=== PATIENT | male | born 1965 | race African-American/Black ===

== ENCOUNTER → 2016-09-27 | Outpatient (CLI) | payer BC ==
[2015-10-18 12:58] VITALS: BP 128/78
[~2016-09-27] MED LIST: PRED20TA PO
--- NOTE | 2016-09-28 09:23 | RAD ---
Abdomen radiograph History: Left lower quadrant pain. Comparison: None. Findings: AP supine abdomen radiograph. Bowel gas pattern is nonspecific, without evidence of obstruction. A mild amount of stool seen within the colon. Calcifications in the pelvis are seen, may be phleboliths, but cannot exclude a distal left ureteral stone. Impression: Nonspecific bowel gas pattern.
== END | disposition home or self-care (01) ==
LOC: RAD 17:31
PROVIDERS: ATTEND General Practice
DX: R10.32 Left lower quadrant pain (principal)
CPT/HCPCS: 74000

== ENCOUNTER 2017-07-13 03:16 | Observation (INO) | payer BC, OTHER ==
[~2017-07-13] VITALS: Ht 182.9 cm; Wt 105.9 kg
[2017-07-13] MEDS ORDERED: ASPIRIN 81 MG TAB.CHEW ONE (03:37)
[2017-07-13] MEDS ORDERED: CONTRAST GIVEN MC PRN (03:45)
[2017-07-13 03:50] LABS: BASO % 1 % (0-3); EOS # 0.4 x10^3/uL (0.0-0.7); EOS % 6 % (0-3); HEMATOCRIT 41.9 % (39.0-53.0); HEMOGLOBIN 14.2 g/dL (13.0-17.5); LYMPH # 1.4 x10^3/uL (1.0-4.8); LYMPH % 20 % (24-48); MEAN CORPUSCULAR HEMOGLOBIN 29 pg (25-35); MEAN CORPUSCULAR HGB CONC 34 g/dL (31-37); MEAN CORPUSCULAR VOLUME 85 fL (79-100); MONO # 0.6 x10^3/uL (0.0-1.1); MONO % 9 % (0-9); NEUT # 4.5 x10^3uL (1.8-7.7); NEUT % 64 % (31-73); PLATELET COUNT 256 x10^3/uL (140-400); RED BLOOD COUNT 4.94 x10^6/uL (4.30-5.70); RED CELL DISTRIBUTION WIDTH 13.8 % (11.5-14.5)
--- NOTE | 2017-07-13 03:53 | EKG ---
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
[2017-07-13] MEDS ORDERED: MORPHINE SULFATE 4 MG/ML DISP.SYRIN. IV ONE (04:00)
[2017-07-13] MEDS ORDERED: ASPIRIN ENTERIC COATED 325 MG TABLET.DR. PO ONE (04:00)
[2017-07-13] MEDS ORDERED: IOHEXOL 300 MG/ML 75 ML VIAL. IV ONE (04:00)
[2017-07-13 04:03] LABS: ALBUMIN 3.8 g/dL (3.4-5.0); ALBUMIN/GLOBULIN RATIO 1.1 (1.0-1.7); CALCIUM 8.6 mg/dL (8.5-10.1); CREATININE 1.2 mg/dL (0.7-1.3); GFR 76.9; POTASSIUM 3.4 mmol/L (3.5-5.1); TOTAL BILIRUBIN 0.6 mg/dL (0.2-1.0); TOTAL PROTEIN 7.3 g/dL (6.4-8.2)
--- NOTE | 2017-07-13 05:11 | RAD ---
INDICATION: chest pain COMPARISON: May 2012 TECHNIQUE: Axial CT images obtained through the chest. Intravenous contrast utilized. Angiogram 3D images processed per protocol. One or more of the following individualized dose reduction techniques were utilized for this examination: 1. Automated exposure control; 2. Adjustment of the mA and/or kV according to patient size; 3. Use of iterative reconstruction technique. FINDINGS: There is some dependent groundglass opacities bilaterally. No evidence of pneumothorax. Partially visualized liver appears low attenuation. Nonspecific but can be seen with fatty infiltration. Some motion obscures proximal ascending thoracic aorta but no definite aneurysm or dissection flap is seen in visualized portions. There are some mildly prominent lymph nodes in the axilla. No embolus in the main pulmonary arteries. Somewhat limited peripherally secondary to motion and contrast bolus timing. IMPRESSION: 1. No central pulmonary embolus. 2. There are some dependent groundglass opacities bilaterally. Could be secondary to atelectasis but mild edema or pneumonitis can also have this appearance. 3. Low attenuation of the liver. Nonspecific but frequently secondary to fatty infiltration. Electronically signed by: Mason Cherry MD (07/13/2017 5:08 AM) [id number]
--- NOTE | 2017-07-13 05:39 | PHYS DOC ---
Past History Past Medical History: No Pertinent History Past Surgical History: No Surgical History Alcohol Use: None Drug Use: None Adult General Chief Complaint Chief Complaint: CHEST PAIN HPI HPI Patient is a 52-year-old gentleman who presents here today complaining of left shoulder and chest discomfort that started approximately 2 hours prior to arrival he is resting. Patient has no history of hypertension, diabetes, CAD, cholesterol, family history, tobacco, drug history. Patient has a liver longer kidney problems. Patient reports that the pain started while he was sleeping arrest started developing left shoulder and chest discomfort that he describes as a gas bubble in his chest. Patient denies any exacerbating or relieving factors. Patient reports no change with exertion, rest, position, burping. Patient denies any fevers shakes chills cough cold rhinorrhea. Patient denies any diaphoresis or shortness of breath. Patient has any abdominal pain dysuria frequency urgency. Patient reports no prior heart disease or prior workup for heart disease. Review of systems: Constitutional: Denies fever or chills Eyes: Denies change in visual acuity, redness, or eye pain HENT: Denies nasal congestion or sore throat Respiratory: Denies cough or shortness of breath All other systems were reviewed and found to be within normal limits, except as documented in this note. Physical exam: Constitutional: Well developed, well nourished, no acute distress, non-toxic appearance. HENT: Normocephalic, atraumatic, bilateral external ears normal, nose normal. Eyes: PERRLA, EOMI, conjunctiva normal, no discharge. Neck: Normal range of motion, no tenderness, supple, no stridor. Cardiovascular: Heart rate regular rhythm, Lungs & Thorax: Bilateral breath sounds clear to auscultation Abdomen: No abdominal distention. Skin: Warm, dry, no erythema, no rash. Back: Normal spinal curvature Extremities: No tenderness, no cyanosis, no clubbing, ROM intact, no edema. Neurologic: Alert and oriented X 3, normal motor function, normal sensory function, no focal deficits noted. Psychologic: Affect normal, judgement normal, mood normal. Patient's ER physical exam was most remarkable: Nonreproducible chest discomfort EKG as interpreted by ER physician reveals: Normal sinus rhythm with nonspecific ST-T wave abnormalities. No evidence of ST elevation MD. CTA of thorax: No acute PE or dissection. Chest x-ray as interpreted by ER physician reveals: Normal heart no infiltrates or effusions. Labs reviewed: Assessment and plan: 1. 52-year-old gentleman with no significant past medical history presents to the ER today complaining of left shoulder discomfort that's nonreproducible as well as a "bubble sensation in his chest ". Although patient has no significant cardiac risk factors, the patient's description of the discomfort is extremely atypical and could be consistent with unstable angina. I have discussed with the patient his normal lab results as well as normal CTA which was negative for dissection. I have recommended admission for further evaluation of his discomfort and he and his are both in agreement with the current plan. The patient reports the pain is significantly improved after the morphine and aspirin. Patient reports he does have a history significant for back discomfort in the past however he reports that this discomfort is completely atypical to his usual back pain. Current Medications Current Medications Current Medications Medications (Trade) Dose Ordered Sig/Alejandro Start Time Stop Time Status Last Admin Dose Admin Aspirin (Aspirin Enteric Coated) 325 mg 1X ONCE 07/13/17 04:00 07/13/17 04:01 DC Info (Do NOT chart on this entry -- for MONITORING) 1 each PRN DAILY PRN 07/13/17 03:45 07/15/17 03:44 Iohexol (Omnipaque 300 Mg/ml) 75 ml 1X ONCE 07/13/17 04:00 07/13/17 04:01 DC 07/13/17 04:00 75 ML Morphine Sulfate (Morphine 4mg Syringe) 4 mg 1X ONCE 07/13/17 04:00 07/13/17 04:01 DC 07/13/17 03:40 4 MG Allergies Allergies Allergies Coded Allergies Type Severity Reaction Last Updated Verified latex Allergy Intermediate 07/13/17 Yes Current Patient Data Vital Signs Vital Signs Date Time Temp Pulse Resp B/P (MAP) Pulse Ox O2 Delivery O2 Flow Rate FiO2 07/13/17 03:40 20 99 Room Air 07/13/17 03:16 97.9 84 Lab Results Laboratory Tests Test 07/13/17 03:30 White Blood Count 7.0 x10^3/uL (4.0-11.0) Red Blood Count 4.94 x10^6/uL (4.30-5.70) Hemoglobin 14.2 g/dL (13.0-17.5) Hematocrit 41.9 % (39.0-53.0) Mean Corpuscular Volume 85 fL (79-100) Mean Corpuscular Hemoglobin 29 pg (25-35) Mean Corpuscular Hemoglobin Concent 34 g/dL (31-37) Red Cell Distribution Width 13.8 % (11.5-14.5) Platelet Count 256 x10^3/uL (140-400) Neutrophils (%) (Auto) 64 % (31-73) Lymphocytes (%) (Auto) 20 % (24-48) L Monocytes (%) (Auto) 9 % (0-9) Eosinophils (%) (Auto) 6 % (0-3) H Basophils (%) (Auto) 1 % (0-3) Neutrophils # (Auto) 4.5 x10^3uL (1.8-7.7) Lymphocytes # (Auto) 1.4 x10^3/uL (1.0-4.8) Monocytes # (Auto) 0.6 x10^3/uL (0.0-1.1) Eosinophils # (Auto) 0.4 x10^3/uL (0.0-0.7) Basophils # (Auto) 0.0 x10^3/uL (0.0-0.2) Sodium Level 139 mmol/L (136-145) Potassium Level 3.4 mmol/L (3.5-5.1) L Chloride Level 103 mmol/L (98-107) Carbon Dioxide Level 29 mmol/L (21-32) Anion Gap 7 (6-14) Blood Urea Nitrogen 14 mg/dL (8-26) Creatinine 1.2 mg/dL (0.7-1.3) Estimated GFR (Cockcroft-Gault) 76.9 BUN/Creatinine Ratio 12 (6-20) Glucose Level 120 mg/dL (70-99) H Calcium Level 8.6 mg/dL (8.5-10.1) Total Bilirubin 0.6 mg/dL (0.2-1.0) Aspartate Amino Transferase (AST) 18 U/L (15-37) Alanine Aminotransferase (ALT) 32 U/L (16-63) Alkaline Phosphatase 46 U/L (46-116) Troponin I Quantitative < 0.017 ng/mL (0-0.055) Total Protein 7.3 g/dL (6.4-8.2) Albumin 3.8 g/dL (3.4-5.0) Albumin/Globulin Ratio 1.1 (1.0-1.7) EKG EKG [] Radiology/Procedures Radiology/Procedures [] Course & Med Decision Making Course & Med Decision Making Pertinent Labs and Imaging studies reviewed. (See chart for details) [] Dragon Disclaimer Dragon Disclaimer This electronic medical record was generated, in whole or in part, using a voice recognition dictation system. Departure Departure: Impression: Primary Impression: Chest pain Additional Impression: Unstable angina Disposition: ADMITTED INPATIENT Admitting Physician: Peter Mcdowell Condition: STABLE Referrals: KHUSHI MAYNARD DO (PCP) Problem Qualifiers NISREEN SMALL MD Jul 13, 2017 05:39
[2017-07-13] MEDS ORDERED: ACETAMINOPHEN 325 MG TABLET PO PRN (05:45)
[2017-07-13] MEDS ORDERED: NITROGLYCERIN SUBLINGUAL 0.4 MG BOTTLE OF 25. SL PRN (05:45)
[2017-07-13] MEDS ORDERED: MORPHINE SULFATE 4 MG/ML DISP.SYRIN. IV PRN (05:45)
[2017-07-13 06:19] VITALS: BP 136/60
[2017-07-13 06:32] VITALS: BP 140/81
--- NOTE | 2017-07-13 07:07 | RAD ---
Portable chest, 07/13/2017: History: Chest pain Comparison is made to a study from 02/08/2016. The heart size and pulmonary vascularity are normal. No pulmonary infiltrate is seen. There is no evidence of pleural fluid. IMPRESSION: No acute cardiopulmonary abnormality is detected.
--- NOTE | 2017-07-13 09:40 | PDOC2 ---
CONSULT Date of Admission DATE: 07/13/17 TIME: 09:38 Reason for Consult: cp Problem List Problems Medical Problems: (1) Chest pain Status: Acute (2) Unstable angina Status: Acute History of Present Illness Mr Salcido is a 52 year old male with no significant medical history that presented to the ED with complaints of back, arm and chest pain. He reports that he woke from sleep with pain between his shoulder blades which radiated to his left arm and a mild pressure in his mid sternal area. He denies any exacerbating or relieving factors. He reports that his pain improved while in the ED and now has only some discomfort in his right shoulder blade area. He denies any prior chest discomfort, dyspnea, congestive symptoms, palpitations or syncope. He reports some mild lightheadedness that occurs when he first gets up in the mornings and resolves quickly with standing still. He denies any limitations in his functional status. Past Medical History low back surgery and herniated disc in his upper back Past Surgical History as above Family History hypertension, diabetes mellitus, no premature coronary disease or SCD Social History non smoker, no ETOH or illicit drugs Current Medications Current Medications Aspirin (Aspirin Enteric Coated) 325 mg 1X ONCE PO ; Start 07/13/17 at 04:00; Stop 07/13/17 at 04:01; Status DC Morphine Sulfate (Morphine 4mg Syringe) 4 mg 1X ONCE IV Last administered on at 03:40; Start 07/13/17 at 04:00; Stop 07/13/17 at 04:01; Status DC Iohexol (Omnipaque 300 Mg/ml) 75 ml 1X ONCE IV Last administered on 07/13/17at 04:00; Start 07/13/17 at 04:00; Stop 07/13/17 at 04:01; Status DC Info (Do NOT chart on this entry -- for MONITORING) 1 each PRN DAILY PRN MC SEE COMMENTS; Start 07/13/17 at 03:45; Stop 07/15/17 at 03:44 Morphine Sulfate (Morphine 4mg Syringe) 4 mg PRN Q2HR PRN IV PAIN; Start at 05:45; Stop 07/14/17 at 05:44 Acetaminophen (Tylenol) 650 mg PRN Q4HRS PRN PO FEVER; Start 07/13/17 at 05:45 ; Stop 07/14/17 at 05:44 Nitroglycerin (Nitrostat) 0.4 mg PRN Q5MIN PRN SL CHEST PAIN; Start 07/13/17 at 05:45; Stop 07/14/17 at 05:44 Active Scripts Active Reported No Known Medications Prior To Admisstion (Info) Each 1 Each Allergies: Coded Allergies: latex (Verified Allergy, Intermediate, 07/13/17) Review of System as per HPI or negative General: Alert, Oriented X3, Cooperative, No acute distress HEENT: Atraumatic, EOMI, Mucous membr. moist/pink Lungs: Clear to auscultation, Normal air movement Heart: Regular rate, Normal S1, Normal S2, No murmurs, Other (no clicks or rubs ) Abdomen: Normal bowel sounds, Soft, No tenderness Extremities: No clubbing, No cyanosis, No edema, Normal pulses Neuro: Normal speech, Strength at 5/5 X4 ext Psych/Mental Status: Mental status NL, Mood NL VITALS Vital Signs Date Time Temp Pulse Resp B/P (MAP) Pulse Ox O2 Delivery O2 Flow Rate FiO2 07/13/17 07:55 Room Air 07/13/17 06:32 98.4 71 19 140/81 (100) 98 Labs Laboratory Tests Test 07/13/17 03:30 07/13/17 08:37 White Blood Count 7.0 x10^3/uL (4.0-11.0) Red Blood Count 4.94 x10^6/uL (4.30-5.70) Hemoglobin 14.2 g/dL (13.0-17.5) Hematocrit 41.9 % (39.0-53.0) Mean Corpuscular Volume 85 fL (79-100) Mean Corpuscular Hemoglobin 29 pg (25-35) Mean Corpuscular Hemoglobin Concent 34 g/dL (31-37) Red Cell Distribution Width 13.8 % (11.5-14.5) Platelet Count 256 x10^3/uL (140-400) Neutrophils (%) (Auto) 64 % (31-73) Lymphocytes (%) (Auto) 20 % (24-48) Monocytes (%) (Auto) 9 % (0-9) Eosinophils (%) (Auto) 6 % (0-3) Basophils (%) (Auto) 1 % (0-3) Neutrophils # (Auto) 4.5 x10^3uL (1.8-7.7) Lymphocytes # (Auto) 1.4 x10^3/uL (1.0-4.8) Monocytes # (Auto) 0.6 x10^3/uL (0.0-1.1) Eosinophils # (Auto) 0.4 x10^3/uL (0.0-0.7) Basophils # (Auto) 0.0 x10^3/uL (0.0-0.2) Sodium Level 139 mmol/L (136-145) Potassium Level 3.4 mmol/L (3.5-5.1) Chloride Level 103 mmol/L (98-107) Carbon Dioxide Level 29 mmol/L (21-32) Anion Gap 7 (6-14) Blood Urea Nitrogen 14 mg/dL (8-26) Creatinine 1.2 mg/dL (0.7-1.3) Estimated GFR (Cockcroft-Gault) 76.9 BUN/Creatinine Ratio 12 (6-20) Glucose Level 120 mg/dL (70-99) Calcium Level 8.6 mg/dL (8.5-10.1) Total Bilirubin 0.6 mg/dL (0.2-1.0) Aspartate Amino Transf (AST/SGOT) 18 U/L (15-37) Alanine Aminotransferase (ALT/SGPT) 32 U/L (16-63) Alkaline Phosphatase 46 U/L (46-116) Troponin I Quantitative < 0.017 ng/mL (0-0.055) < 0.017 ng/mL (0-0.055) Total Protein 7.3 g/dL (6.4-8.2) Albumin 3.8 g/dL (3.4-5.0) Albumin/Globulin Ratio 1.1 (1.0-1.7) Images EKG - sinus rhythm with non specific changes, no acute ischemia CT - IMPRESSION: 1. No central pulmonary embolus. 2. There are some dependent groundglass opacities bilaterally. Could be secondary to atelectasis but mild edema or pneumonitis can also have this appearance. 3. Low attenuation of the liver. Nonspecific but frequently secondary to fatty infiltration. CXR - IMPRESSION: No acute cardiopulmonary abnormality is detected. Assessment/Plan 1. Chest pain, atypical most consistent with radiculopathy. Will check echo for LV function and wall motion and await last CE. 2. abnormal EKG - no acute ischemic changes. If echo WNL, suggest outpatient stress test. Continue aspirin, check lipids and echo. Problems: KENDAL BLACKMAN APRN Jul 13, 2017 09:40
[2017-07-13] MEDS ORDERED: POTASSIUM CHLORIDE 10 MEQ TABLET.ER. PO ONE (10:15)
[2017-07-13] MEDS ORDERED: KETOROLAC 30 MG/ML VIAL. IV ONE (10:15)
[2017-07-13 11:15] VITALS: BP 114/64
[2017-07-13 15:33] VITALS: BP 118/70
--- NOTE | 2017-07-13 16:03 | CARD ---
MR#: [id number] Date of Study: 07/13/2017 Ordering Physician: KENDAL BLACKMAN, Referring Physician: SAHARA KNOX Tech: Mckenzie Luis RDCS APPROVED REPORT EXAM: Two-dimensional and M-mode echocardiogram with Doppler and color Doppler. Other Information Quality : Good INDICATION Chest Pain 2D DIMENSIONS RVDd3.0 (2.9-3.5cm)Left Atrium(2D)3.9 (1.6-4.0cm) IVSd0.9 (0.7-1.1cm)Aortic Root(2D)3.3 (2.0-3.7cm) LVDd5.3 (3.9-5.9cm)LVOT Diameter2.1 (1.8-2.4cm) PWd1.1 (0.7-1.1cm)LVDs3.4 (2.5-4.0cm) FS (%) 30.0 %SV87.7 ml LVEF(%)60.0 (>50%) Aortic Valve AoV Peak Kulwinder.121.8cm/sAoV VTI24.4cm AO Peak GR.5.9mmHgLVOT Peak Kulwinder.122.9cm/s LVOT VTI 26.72cmAO Mean GR.3mmHg LUIS MIGUEL (VMAX)3.90ot5PTX (VTI)3.77cm2 Mitral Valve MV E Xylcyzae25.4cm/sMV DECEL HHCD060db MV A Nsictciu21.3cm/sE/A Ratio1.3 Tricuspid Valve TR P. Naxdshyx442al/sRAP MSEMVRZJ3oaLm TR Peak Gr.14qwHvAEHA81paHe Pulmonary Vein S1 Rvzwvgeh51.5cm/sD2 Jmmgdykn04.4cm/s LEFT VENTRICLE The left ventricle is normal size. There is normal left ventricular wall thickness. The left ventricu lar systolic function is normal. The Ejection Fraction is 55-60%. There is normal LV segmental wall m otion. The left ventricular diastolic function and filling is normal for age. RIGHT VENTRICLE The right ventricle is normal size. The right ventricular systolic function is normal. ATRIA The left atrium size is normal. The right atrium size is normal. The interatrial septum is intact wit h no evidence for an atrial septal defect or patent foramen ovale as noted on 2-D or Doppler imaging. AORTIC VALVE The aortic valve is calcified but opens well. Doppler and Color Flow revealed no significant aortic r egurgitation. There is no significant aortic valvular stenosis. MITRAL VALVE The mitral valve is normal in structure and function. There is no evidence of mitral valve prolapse. There is no mitral valve stenosis. Doppler and Color-flow revealed trace mitral regurgitation. TRICUSPID VALVE The tricuspid valve is normal in structure and function. Doppler and Color Flow revealed trace tricus pid regurgitation. The PA pressure was estimated at 27 mmHg. There is no tricuspid valve stenosis. PULMONIC VALVE The pulmonary valve is normal in structure and function. Doppler and Color Flow revealed trace to mil d pulmonic valvular regurgitation. There is no pulmonic valvular stenosis. GREAT VESSELS The aortic root is normal in size. The ascending aorta is normal in size. The IVC is normal in size a nd collapses >50% with inspiration. PERICARDIAL EFFUSION There is no evidence of significant pericardial effusion. Critical Notification Critical Value: No <Conclusion> The left ventricular systolic function is normal. The Ejection Fraction is 55-60%. There is normal LV segmental wall motion. Trace mitral regurgitation. Trace tricuspid regurgitation. The PA pressure was estimated at 27 mmHg. There is no evidence of significant pericardial effusion. Signed by : Frederick Yin, Electronically Approved : 07/13/2017 16:03:41
[2017-07-13] MEDS ORDERED: HYDR-2758 PO (17:20)
--- NOTE | 2017-07-13 18:18 | SSS ---
ADMIT DATE: 07/13/2017 HISTORY OF PRESENT ILLNESS: The patient is a 52-year-old male patient with no significant past medical history, who came to the Emergency Room complaining of back, arm and chest pain. He reports that he woke up from sleep with pain between his shoulder blades, which radiated to his left arm, and mild pressure in his midsternal area. He denied any exacerbating or relieving factors. He reported his pain improved while in the Emergency Room and now he only has discomfort in his right shoulder blade area. He denied any similar symptoms before. He denied any shortness of breath, orthopnea, paroxysmal nocturnal dyspnea. Denied any dizziness, lightheadedness. No limitation in his functional status, and was evaluated in the Emergency Room and has had an EKG and 3 sets of cardiac enzymes that were negative, and echocardiogram which showed that he has normal left ventricular systolic function, ejection fraction. He was evaluated by the Cardiology team and the plan is for him to have a stress test as an outpatient. PAST MEDICAL HISTORY: Unremarkable. PAST SURGICAL HISTORY: Significant for low back surgery and herniated disk in his upper back. FAMILY HISTORY: Significant for hypertension, diabetes, but no premature coronary artery disease. SOCIAL HISTORY: He does not smoke, drink alcohol or recreational drugs. MEDICATIONS: He is currently on no medication. ALLERGIES: He has no known drug allergies. PHYSICAL EXAMINATION: GENERAL: On examining him, he looked well and was clearly in no apparent respiratory distress, pale. No jaundice, cyanosis, or thyromegaly. No jugular venous distention. No limb edema. VITAL SIGNS: His heart rate was 60, blood pressure was 118/70, temperature was 97.7, respiratory rate was 18 and oxygen saturation was 94%. HEAD, EYES, EARS, NOSE AND THROAT: Showed normocephalic, atraumatic. NECK: Supple. HEART: Showed normal first and second heart sounds with no gallop, rub or murmur. CHEST: Clear to auscultation. No crepitation or rhonchi. ABDOMEN: Distended, soft, nontender. No guarding or rigidity. No organomegaly. All hernial orifices intact. Bowel sounds normal. NEUROLOGIC: He is awake, alert, responding appropriately. Cranial nerves intact. EXTREMITIES: Moves extremities without difficulty, ambulates without assistance or assistive devices. LABORATORY DATA: The patient has 3 sets of cardiac enzyme showed the troponin to be less than 0.017. His lipid profile shows serum triglycerides 96, total cholesterol of 42, LDL was 82, VLDL was 19, and HDL cholesterol of 41 and the ratio was 3. His white cell count was 7000, hemoglobin 14, hematocrit 42, MCV 85 and platelet count 256,000. His chemistry showed a serum sodium 139, potassium 3.4, chloride 103, bicarbonate 29, anion gap of 7, BUN 14, creatinine 1.2, estimated GFR was 77 mL per minute. His glucose was 120, calcium was 8.6. Total bilirubin, AST, ALT, alkaline phosphatase were normal. His total protein was 7.3, albumin was 3.8. 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 FINAL DISCHARGE DIAGNOSIS: Atypical chest pain, probably musculoskeletal in nature. SAHARA KNOX MD DR: SHAWNA/melissa JOB#: [id number] / [id number]
== END 2017-07-13 17:35 | disposition home or self-care (01) ==
LOC: ER 03:16 → ICU 05:12 → INTOOBSV 05:12
PROVIDERS: ADMIT Internal Medicine; ATTEND Internal Medicine
DX: R07.89 Other chest pain (principal); R94.31 Abnormal electrocardiogram [ECG] [EKG]; Z82.49 Family history of ischemic heart disease and other diseases of the circulatory system; Z83.3 Family history of diabetes mellitus
CPT/HCPCS: 36415; 71045; 71275; 80053; 80061; 84484; 85025; 87641; 93005; 93306; 96374; 96375; 99285; G0378; J1885; J2270; Q9967; G0379

== ENCOUNTER → 2017-10-12 | Outpatient (CLI) | payer BC ==
[~2017-10-12] MED LIST changes: +HYDR-2758 PO
--- NOTE | 2017-10-12 16:11 | RAD ---
EXAM: Right knee, 3 views. HISTORY: Pain. COMPARISON: None. FINDINGS: Frontal, lateral and oblique views of the right knee are obtained. There is no fracture, dislocation or subluxation. There is no joint effusion. IMPRESSION: No acute osseous finding. Electronically signed by: Linda Jackson MD (10/12/2017 4:07 PM) [facility]
== END | disposition home or self-care (01) ==
LOC: DXRAD 15:27
PROVIDERS: ATTEND General Practice
DX: M25.561 Pain in right knee (principal)
CPT/HCPCS: 73562

== ENCOUNTER → 2019-05-20 | Outpatient (CLI) | payer OTHER ==
[~2019-05-20] MED LIST changes: +HYDR-2155 PO; -HYDR-2758 PO
--- NOTE | 2019-05-20 10:54 | RAD ---
CHEST PA LATERAL History: Cough, congestion, fever for 4 days Comparison: July 13, 2017 Findings: 2 views of the chest are submitted. There is no infiltrate, pneumothorax, or effusion. Pericardial cardiac silhouette is within normal limits in size. Impression: 1. There is no radiographic evidence of acute cardiopulmonary disease. Electronically signed by: Rodney Dacosta MD (05/20/2019 10:51 AM) [facility]
== END | disposition home or self-care (01) ==
LOC: DXRAD 10:16
PROVIDERS: ATTEND Registered Nurse
DX: R09.89 Other specified symptoms and signs involving the circulatory and respiratory systems (principal); R05 Cough; R50.9 Fever, unspecified
CPT/HCPCS: 71046

== ENCOUNTER → 2019-05-22 | Outpatient (CLI) | payer OTHER ==
--- NOTE | 2019-05-22 13:33 | RAD ---
CT HEAD WITHOUT CONTRAST 05/22/2019 1:00 PM Indication: New onset headaches Comparison: None Procedure: Multidetector CT imaging of the head was performed without the administration of contrast. Findings: There is no evidence of acute intracranial hemorrhage. There is no evidence of acute territorial infarction. Please note that CT is limited for evaluation of acute ischemia. No mass effect or midline shift is identified . The ventricles and basilar cisterns have an appropriate appearance. No abnormal extra-axial fluid collections are seen. Partial opacification of the left mastoid air cells noted. The appearance is nonspecific. Correlate with clinical findings. Impression: 1. No evidence of acute intracranial abnormality 2. Nonspecific, partial opacification of left mastoid air cells. Finding may be incidental. Recommend correlation with with clinical evidence of mild or early mastoiditis. CT DOSING PQRS STATEMENT: One or more of the following individualized dose reduction techniques were utilized for this examination: 1. Automated exposure control 2. Adjustment of the mA and/or kV according to patient size 3. Use of iterative reconstruction technique Electronically signed by: Shivam Lopez MD (05/22/2019 1:29 PM) [facility]
== END | disposition home or self-care (01) ==
LOC: CT 12:35
PROVIDERS: ATTEND Family Medicine
DX: R51 Headache (principal); H74.8X2 Other specified disorders of left middle ear and mastoid
CPT/HCPCS: 70450

== ENCOUNTER → 2021-06-09 | Outpatient (CLI) | payer BC ==
--- NOTE | 2021-06-09 12:10 | RAD ---
EXAM: Chest, 2 views. HISTORY: Rib pain. Fall. COMPARISON: 05/20/2019 FINDINGS: 2 views of the chest are obtained. There is no infiltrate, pleural effusion or pneumothorax . The heart is normal in size. IMPRESSION: No acute pulmonary finding. Electronically signed by: Linda Jackson MD (06/09/2021 12:08 PM) [id number]
--- NOTE | 2021-06-09 12:11 | RAD ---
EXAM: Cervical spine, 5 views. HISTORY: Fall. Pain. COMPARISON: None. FINDINGS: 5 views of the cervical spine are obtained. There is no listhesis. The vertebral bodies are normal in height. There is endplate remodeling and disc space narrowing at C6-C7. There is right gre ater than left facet arthropathy at multiple levels. IMPRESSION: Degenerative change primarily at C6-C7. No acute osseous finding. Electronically signed by: Linda Jackson MD (06/09/2021 12:09 PM) [id number]
== END ==
LOC: RAD 11:17
PROVIDERS: ATTEND Nurse Practitioner Family
DX: R07.81 Pleurodynia (principal); M47.812 Spondylosis without myelopathy or radiculopathy, cervical region; M48.02 Spinal stenosis, cervical region; M48.8X2 Other specified spondylopathies, cervical region; Z91.81 History of falling
CPT/HCPCS: 71046; 72040

== ENCOUNTER → 2021-06-30 | Outpatient (CLI) | payer BC ==
--- NOTE | 2021-06-30 13:00 | RAD ---
XR SHOULDER_RIGHT 2+ VIEWS DATE: 06/30/2021 10:53 AM INDICATION: fall down stairs last month, pain COMPARISON: None. FINDINGS: Bones: There is no evidence of acute fracture or dislocation. Joints: Glenohumeral joint is congruent. Mild degenerative changes of the acromioclavicular joint. T he acromiohumeral distance is not narrowed. Miscellaneous: No abnormal soft tissue calcifications in the shoulder. IMPRESSION: No evidence of acute fracture. Electronically signed by: Rodney Topete MD (06/30/2021 12:57 PM) [id number]
== END ==
LOC: RAD 10:38
PROVIDERS: ATTEND Family Medicine
DX: M19.011 Primary osteoarthritis, right shoulder (principal); M25.511 Pain in right shoulder
CPT/HCPCS: 73030